=== PATIENT | female | born 1980 | race Caucasian/White ===

== ENCOUNTER 2020-11-27 11:40 | Inpatient (IN) ==
[2020-11-27 12:39] LABS: Basophils % 0.4 %; Eosinophils # 0.2 K/mcL (0.0-0.6); Eosinophils % 2.4 %; Hematocrit 27.6 % (35.3-44.9); Immature Granulocytes % 0.3 % (0-4); Lymphocytes # 1.8 K/mcL (0.6-4.6); Lymphocytes % 23.7 %; Mean Corpuscular HGB Conc 32.6 g/dL (31.6-35.5); Mean Corpuscular Hemoglobin 29.7 pg (28.0-33.3); Mean Corpuscular Volume 91.1 fL (83.0-100.0); Mean Platelet Volume 8.5 fL (9.4-12.4); Monocytes # 0.4 K/mcL (0.0-1.3); Monocytes % 5.4 %; Neutrophils # 5.1 K/mcL (1.6-8.9); Nucleated Red Blood Cells 0.3 /100 WBC (0); Platelet Count 305 K/mcL (140-400); Red Blood Count 3.03 M/mcL (3.82-4.97); Red Cell Distribution Width 13.1 % (11.5-14.5); Segmented Neutrophils % 67.8 %; White Blood Count 7.6 K/mcL (4.3-11.1)
[2020-11-27 12:41] LABS: INR 1.1; Prothrombin Time 12.5 Seconds (9.4-12.1)
[2020-11-27 12:44] LABS: Activated Partial Thrombo Time 31.5 Seconds (26.0-36.0)
[2020-11-27 13:20] LABS: Alanine Aminotransferase 12 Units/L (7-52); Albumin/Globulin Ratio 1.6 (1.1-2.2); Alkaline Phosphatase 56 Units/L (34-104); Aspartate Amino Transferase 13 Units/L (13-39); BUN/Creatinine Ratio 12 (6-26); Bilirubin,Direct 0.1 mg/dL (0.0-0.2); Bilirubin,Indirect 0.4 mg/dL (0.0-1.0); Bilirubin,Total 0.5 mg/dL (0.3-1.0); Blood Urea Nitrogen 9 mg/dL (6-20); Calcium 8.8 mg/dL (8.6-10.3); Carbon Dioxide 21 mEq/L (23-29); Chloride 110 mEq/L (98-107); Globulin 2.5 g/dL (2.4-3.5); Glucose 98 mg/dL (70-105); Osmolality,Calculated 287 (280-300); Potassium 3.7 mEq/L (3.5-5.1); Sodium 139 mEq/L (136-145); Total Protein 6.5 g/dL (6.4-8.9); Troponin I < 0.03 ng/mL (< 0.04); eGFR For African Americans > 60 (> 60); eGFR For Non-African Americans > 60 (> 60)
[2020-11-27] MEDS ORDERED: Isovue-370 500 ML BOTTLE IVP ONE (13:33)
[2020-11-27] MEDS ORDERED: *HR* Heparin 5,000 UNIT/ML VIAL IVP PRN ×2 (14:31)
[2020-11-27] MEDS ORDERED: *HR* Heparin 5,000 UNIT/ML VIAL IVP ONE (14:31)
[2020-11-27] MEDS ORDERED: *HR* HYDROcodone/Acet 5/325 mg TABLET PO PRN (15:15)
[2020-11-27] MEDS ORDERED: Naloxone 0.4 MG/ML INJ IVP PRN (15:15)
[2020-11-27] MEDS ORDERED: Melatonin 3 MG TABLET PO PRN (15:15)
[2020-11-27] MEDS ORDERED: *HR* LORazepam 0.5 MG TABLET PO PRN (15:26)
[2020-11-27] MEDS ORDERED: *HR* LORazepam 2 MG/ML VIAL IVP ONE (15:26)
[2020-11-27] MEDS ORDERED: Ipratropium/Albuterol Neb 3 ML IH SCH (16:00)
[2020-11-27] MEDS: Heparin 25,000UNIT/250ML 1/2NS 25,000 UNIT/250 ML IV.SOLN IVC SCH (16:25)
[2020-11-27] MEDS: Acetaminophen 325 MG TABLET PO PRN (16:29)
[2020-11-27 16:55] LABS: Influenza A PCR Negative (Negative); Influenza B PCR Negative (Negative); Resp. Syncytial Virus PCR Negative (Negative)
[2020-11-27 17:13] LABS: SARS-CoV-2 by PCR (In House) Negative (Negative)
[2020-11-27 17:26] LABS: ABG Base Excess -4 mEq/L (-2 to 3); ABG HCO3 19 mEq/L (21-27); ABG Oxygen Saturation 97 % (95-98); ABG PCO2 29 mmHg (35-45); ABG PH 7.44 pH Units (7.32-7.45); ABG PO2 83 mmHg (85-104); ABG TCO2 20 mEq/L (20-26)
[2020-11-27] MEDS ORDERED: Perflutren Lipid Microsphere 1.3 ML in 0.9 % Sodium Chloride 8.7 ML IVP PRN (19:44)
[2020-11-27] MEDS: Ipratropium/Albuterol Neb 3 ML IH SCH (21:34)
[2020-11-28] MEDS: Ipratropium/Albuterol Neb 3 ML IH SCH ×4 (03:33→22:46)
[2020-11-28 05:40] LABS: Basophils % 0.5 %; Eosinophils # 0.2 K/mcL (0.0-0.6); Eosinophils % 3.6 %; Hematocrit 27.7 % (35.3-44.9); Hemoglobin 8.8 g/dL (11.5-15.4); Immature Granulocytes % 0.2 % (0-4); Lymphocytes % 34.8 %; Mean Corpuscular HGB Conc 31.8 g/dL (31.6-35.5); Mean Corpuscular Volume 91.4 fL (83.0-100.0); Mean Platelet Volume 8.5 fL (9.4-12.4); Monocytes # 0.4 K/mcL (0.0-1.3); Monocytes % 7.1 %; Neutrophils # 3.1 K/mcL (1.6-8.9); Platelet Count 335 K/mcL (140-400); Red Blood Count 3.03 M/mcL (3.82-4.97); Segmented Neutrophils % 53.8 %; White Blood Count 5.8 K/mcL (4.3-11.1)
[2020-11-28 05:47] LABS: Alanine Aminotransferase 12 Units/L (7-52); Albumin 3.9 g/dL (3.5-5.7); Albumin/Globulin Ratio 1.6 (1.1-2.2); Alkaline Phosphatase 54 Units/L (34-104); Aspartate Amino Transferase 12 Units/L (13-39); BUN/Creatinine Ratio 14 (6-26); Bilirubin,Total 0.5 mg/dL (0.3-1.0); Blood Urea Nitrogen 10 mg/dL (6-20); Calcium 8.7 mg/dL (8.6-10.3); Carbon Dioxide 22 mEq/L (23-29); Chloride 111 mEq/L (98-107); Globulin 2.4 g/dL (2.4-3.5); Glucose 94 mg/dL (70-105); Osmolality,Calculated 289 (280-300); Phosphorous 3.3 mg/dL (2.7-4.5); Potassium 3.6 mEq/L (3.5-5.1); Sodium 140 mEq/L (136-145); Total Protein 6.3 g/dL (6.4-8.9); eGFR For African Americans > 60 (> 60); eGFR For Non-African Americans > 60 (> 60)
[2020-11-28] MEDS ORDERED: SODIUM CHLORIDE IT ONE ×2 (10:00→10:15)
[2020-11-28] MEDS ORDERED: [UNRECOGNIZED DRUG - OTHER] IT ONE (10:00)
[2020-11-28] MEDS ORDERED: MORPHINE SULFATE IT ONE ×2 (10:00→10:15)
[2020-11-28] MEDS ORDERED: [UNRECOGNIZED DRUG - OTHER] IT ONE (10:15)
[2020-11-28] MEDS ORDERED: Heparin 1,000 UNITS/500 mL 500 ML ONE (11:29)
[2020-11-28] MEDS ORDERED: 0.9 % Sodium Chloride 500 ML ONE ×3 (11:30→14:05)
[2020-11-28] MEDS ORDERED: ceFAZolin 2,000 MG in D5% in Water 100 ML IVPB ONE (11:34)
[2020-11-28] MEDS ORDERED: *HR* FentaNYL (PF) 100 MCG/2 ML VIAL IVP ONE (11:35)
[2020-11-28] MEDS ORDERED: Ketorolac 15 MG/ML VIAL IVP PRN (11:39)
[2020-11-28] MEDS ORDERED: Ondansetron 4 MG/2 ML VIAL IVP PRN (11:40)
[2020-11-28] MEDS ORDERED: CeFAZolin 2,000 MG/120 ML BAG IVPB ONE (12:00)
[2020-11-28] MEDS: Ondansetron 4 MG/2 ML VIAL IVP PRN (12:59)
[2020-11-28] MEDS: FLUoxetine 20 MG CAPSULE PO SCH (13:25)
[2020-11-28] MEDS: BuPROPion XL (24 HR) 150 MG TABLET PO SCH (13:25)
[2020-11-28] MEDS ORDERED: *HR* Promethazine 25 MG/ML VIAL IM ONE (13:44)
[2020-11-28] MEDS ORDERED: Isovue-300 50ML VIAL IVP ONE ×3 (14:49→14:57)
[2020-11-28] MEDS: ceFAZolin 1,000 MG in 0.9 % Sodium Chloride Mini Bag 100 ML IVPB SCH ×2 (15:04→19:37)
[2020-11-28 17:10] LABS: Hematocrit 27.4 % (35.3-44.9)
[2020-11-28] MEDS: Heparin 25,000UNIT/250ML 1/2NS 25,000 UNIT/250 ML IV.SOLN IVC SCH ×2 (18:32→20:23)
[2020-11-29] MEDS: Ipratropium/Albuterol Neb 3 ML IH SCH ×2 (03:20→10:20)
[2020-11-29 03:26] LABS: Hematocrit 26.5 % (35.3-44.9); Hemoglobin 8.5 g/dL (11.5-15.4)
[2020-11-29] MEDS ORDERED: Heparin 25,000UNIT/250ML 1/2NS 25,000 UNIT/250 ML IV.SOLN IVC SCH (04:00)
[2020-11-29] MEDS: BuPROPion XL (24 HR) 150 MG TABLET PO SCH (08:15)
[2020-11-29] MEDS: FLUoxetine 20 MG CAPSULE PO SCH (08:16)
[2020-11-29] MEDS ORDERED: Apixaban 5 MG TABLET PO SCH (09:00)
[2020-11-29] MEDS: Ondansetron 4 MG/2 ML VIAL IVP PRN (09:19)
[2020-11-29] MEDS: Acetaminophen 325 MG TABLET PO PRN (09:24)
[2020-11-29 10:00] VITALS: BP 110/64; PULSE 79; TEMP 97.8
[2020-11-29 14:17] VITALS: O2SAT 98
== END 2020-11-29 16:12 | disposition home or self-care (01) | DRG 749 ==
LOC: SUATTDRO → EMEROOARM 11:40 → 3ANU 11:40 → SUATTDRO 17:45 → 3ANU 19:55
PROVIDERS: ADMIT Internal Medicine; ATTEND Internal Medicine
PROC: IRLUMPX (2020-11-28 11:30)

== ENCOUNTER 2021-01-08 11:07 | Inpatient (IN) ==
[2021-01-08] MEDS ORDERED: Furosemide 20 MG/2 ML VIAL IVP ONE (11:32)
[2021-01-08] MEDS ORDERED: Acetaminophen 325 MG TABLET PO ONE (11:32)
[2021-01-08] MEDS ORDERED: 0.9 % Sodium Chloride 250 ML IVC SCH (11:45)
[2021-01-08] MEDS: 0.9 % Sodium Chloride 1,000 ML IVC SCH (17:38)
[2021-01-08 18:04] LABS: Basophils # 0.1 K/mcL (0.0-0.2); Basophils % 0.6 %; Eosinophils # 0.1 K/mcL (0.0-0.6); Eosinophils % 1.4 %; Hematocrit 23.1 % (35.3-44.9); Hemoglobin 7.1 g/dL (11.5-15.4); Immature Granulocytes % 0.3 % (0-4); Lymphocytes # 2.7 K/mcL (0.6-4.6); Lymphocytes % 35.6 %; Mean Corpuscular HGB Conc 30.7 g/dL (31.6-35.5); Mean Corpuscular Hemoglobin 25.3 pg (28.0-33.3); Mean Corpuscular Volume 82.2 fL (83.0-100.0); Mean Platelet Volume 8.1 fL (9.4-12.4); Monocytes # 0.5 K/mcL (0.0-1.3); Monocytes % 6.1 %; Neutrophils # 4.3 K/mcL (1.6-8.9); Platelet Count 649 K/mcL (140-400); Red Blood Count 2.81 M/mcL (3.82-4.97); Red Cell Distribution Width 16.2 % (11.5-14.5); White Blood Count 7.7 K/mcL (4.3-11.1)
[2021-01-08 18:17] LABS: Heparin anti-factor XA UFH 0.5 IU/mL (0.30-0.70)
[2021-01-08 18:18] LABS: INR 1.1; Prothrombin Time 12.8 Seconds (9.4-12.1)
[2021-01-08] MEDS: Topiramate 25 MG TABLET PO SCH (20:48)
[2021-01-08] MEDS ORDERED: *HR* Heparin 5,000 UNIT/ML VIAL IVP PRN ×2 (22:00)
[2021-01-08] MEDS ORDERED: *HR* Heparin 5,000 UNIT/ML VIAL IVP ONE (22:00)
[2021-01-08] MEDS ORDERED: Heparin 25,000UNIT/250ML 1/2NS 25,000 UNIT/250 ML IV.SOLN IVC SCH (22:00)
[2021-01-09 05:33] LABS: Basophils # 0.1 K/mcL (0.0-0.2); Basophils % 0.7 %; Eosinophils # 0.2 K/mcL (0.0-0.6); Eosinophils % 2.9 %; Hematocrit 29.2 % (35.3-44.9); Immature Granulocytes % 0.1 % (0-4); Lymphocytes # 3.6 K/mcL (0.6-4.6); Lymphocytes % 42.8 %; Mean Corpuscular HGB Conc 30.1 g/dL (31.6-35.5); Mean Corpuscular Hemoglobin 25.2 pg (28.0-33.3); Mean Corpuscular Volume 83.7 fL (83.0-100.0); Mean Platelet Volume 8.4 fL (9.4-12.4); Monocytes # 0.6 K/mcL (0.0-1.3); Neutrophils # 3.9 K/mcL (1.6-8.9); Platelet Count 692 K/mcL (140-400); Red Blood Count 3.49 M/mcL (3.82-4.97); Red Cell Distribution Width 16.5 % (11.5-14.5); Segmented Neutrophils % 46.5 %; White Blood Count 8.4 K/mcL (4.3-11.1)
[2021-01-09 05:40] LABS: Hemoglobin 8.8 g/dL (11.5-15.4)
[2021-01-09] MEDS ORDERED: FLUoxetine 20 MG CAPSULE PO SCH (09:00)
[2021-01-09] MEDS ORDERED: BuPROPion XL (24 HR) 150 MG TABLET PO SCH (09:00)
[2021-01-09] MEDS: 0.9 % Sodium Chloride 1,000 ML IVC SCH (10:20)
[2021-01-09] MEDS: Topiramate 25 MG TABLET PO SCH (11:56)
[2021-01-09] MEDS ORDERED: Lidocaine -MPF 4% 5 ML AMPUL ONE (15:07)
[2021-01-09] MEDS ORDERED: *HR* Propofol 200 MG/20 ML VIAL IVP ONE (15:07)
[2021-01-09] MEDS ORDERED: Ondansetron 4 MG/2 ML VIAL ONE ×2 (15:07→18:16)
[2021-01-09] MEDS ORDERED: Lidocaine -MPF 2% 5 ML VIAL ONE (15:07)
[2021-01-09] MEDS ORDERED: *HR* Succinylcholine 200 MG/10 ML VIAL IVP ONE (15:07)
[2021-01-09] MEDS ORDERED: *HR* FentaNYL (PF) 100 MCG/2 ML VIAL ONE (15:08)
[2021-01-09] MEDS ORDERED: Dexmedetomidine HCl 400 MCG/100 ML MLS IVC ONE (15:38)
[2021-01-09] MEDS ORDERED: *HR* Magnesium Sulfate 1 GM/2 ML VIAL ONE (16:18)
[2021-01-09] MEDS ORDERED: *HR* Rocuronium Bromide 50 MG/5 ML VIAL ONE (17:10)
[2021-01-09] MEDS ORDERED: *HR* HYDROmorphone PF 0.5 MG/0.5 ML SYRINGE IVP PRN (17:35)
[2021-01-09] MEDS ORDERED: Sugammadex Sodium 200 MG/2 ML VIAL IV ONE (17:36)
[2021-01-09] MEDS ORDERED: *HR* HYDROMORPHONE 2 MG/ML VIAL ONE (17:40)
[2021-01-09] MEDS ORDERED: Ondansetron 4 MG/2 ML VIAL IM STA (18:13)
[2021-01-09] MEDS ORDERED: Ringers Solution, Lactated 1,000 ML ONE (18:23)
[2021-01-09] MEDS ORDERED: Naloxone 0.4 MG/ML INJ IVP PRN (20:21)
[2021-01-09] MEDS ORDERED: Ondansetron 4 MG/2 ML VIAL IVP PRN (20:21)
[2021-01-09] MEDS ORDERED: *HR* HYDROcodone/Acet 5/325 mg TABLET PO PRN (20:21)
[2021-01-09] MEDS ORDERED: 0.9 % Sodium Chloride 1,000 ML IVC SCH (20:21)
[2021-01-09] MEDS: *HR* OxyCODONE/APAP 5/325 TABLET PO PRN (20:35)
[2021-01-10] MEDS: *HR* OxyCODONE/APAP 5/325 TABLET PO PRN ×4 (01:23→14:37)
[2021-01-10 05:03] LABS: Basophils % 0.1 %; Hematocrit 25.6 % (35.3-44.9); Hemoglobin 8.1 g/dL (11.5-15.4); Immature Granulocytes % 0.3 % (0-4); Lymphocytes # 0.9 K/mcL (0.6-4.6); Mean Corpuscular HGB Conc 31.6 g/dL (31.6-35.5); Mean Corpuscular Hemoglobin 25.8 pg (28.0-33.3); Mean Corpuscular Volume 81.5 fL (83.0-100.0); Mean Platelet Volume 8.3 fL (9.4-12.4); Monocytes # 0.7 K/mcL (0.0-1.3); Monocytes % 4.6 %; Neutrophils # 12.7 K/mcL (1.6-8.9); Platelet Count 600 K/mcL (140-400); Red Blood Count 3.14 M/mcL (3.82-4.97); Red Cell Distribution Width 16.2 % (11.5-14.5)
[2021-01-10 05:06] LABS: White Blood Count 14.3 K/mcL (4.3-11.1)
[2021-01-10] MEDS ORDERED: Iron Sucrose Complex 400 MG in 0.9 % Sodium Chloride 250 ML IVPB ONE (09:35)
[2021-01-10] MEDS: Topiramate 25 MG TABLET PO SCH ×2 (10:27→20:12)
[2021-01-10] MEDS: FLUoxetine 20 MG CAPSULE PO SCH (10:27)
[2021-01-10] MEDS: BuPROPion XL (24 HR) 150 MG TABLET PO SCH (10:28)
[2021-01-10] MEDS: Apixaban 5 MG TABLET PO SCH (20:12)
[2021-01-10 20:17] VITALS: O2SAT 97
[2021-01-11 07:45] VITALS: BP 118/68; PULSE 83; TEMP 99.1
[2021-01-11] MEDS: FLUoxetine 20 MG CAPSULE PO SCH (09:05)
[2021-01-11] MEDS: Apixaban 5 MG TABLET PO SCH (09:05)
[2021-01-11] MEDS: Topiramate 25 MG TABLET PO SCH (09:05)
[2021-01-11] MEDS: BuPROPion XL (24 HR) 150 MG TABLET PO SCH (09:05)
[2021-01-11] MEDS: *HR* OxyCODONE/APAP 5/325 TABLET PO PRN (09:05)
== END 2021-01-11 09:00 | disposition home or self-care (01) | DRG 742 ==
LOC: INFINJ 11:07 → 1NENUOBS 11:30
PROVIDERS: ADMIT Obstetrics & Gynecology; ATTEND Obstetrics & Gynecology